=== PATIENT | male | born 1935 | race Caucasian/White ===

== ENCOUNTER → 2018-08-09 | Outpatient (CLI) | payer MEDICARE ==
--- NOTE | 2018-08-09 11:08 | ECHOF ---
Referral Reason:G46.4 Stroke Syndrome MEASUREMENTS -------- HEIGHT: 182.9 cm WEIGHT: 62.6 kg BP: RVIDd: 3.0 cm (< 3.3) IVSd: 1.2 cm (0.6 - 1.1) LVIDd: 4.2 cm (3.9 - 5.3) LVPWd: 1.3 cm (0.6 - 1.1) IVSs: 1.4 cm LVIDs: 3.0 cm LVPWs: 1.3 cm LA Diam: 3.0 cm (2.7 - 3.8) LAESV Index (A-L): 26.89 ml/m Ao Diam: 3.9 cm (2.0 - 3.7) AV Cusp: 1.8 cm (1.5 - 2.6) LA Diam: 4.3 cm (2.7 - 3.8) MV E Meir: 0.55 m/s MV DecT: 379 ms MV A Meir: 0.98 m/s MV E/A Ratio: 0.56 AV maxP.13 mmHg AV meanP.45 mmHg RAP: 5.00 mmHg RVSP: 28.81 mmHg FINDINGS -------- Sinus rhythm. This was a technically adequate study. The left ventricular size is normal. There is mild concentric left ventricular hypertrophy. Overa ll left ventricular systolic function is mildly impaired with, an EF between 45 - 50 %. The right ventricle is normal in size. The left atrium is mildly dilated. Normal LA size by volume 22+/-6 ml/m2. The right atrial size is normal. There is mild aortic valve sclerosis. Peak/mean gradient across the Aortic Valve is 12.13mmHg / 6.4 5mmHg. Mild mitral annular calcification present. Mild mitral regurgitation is present. Mild tricuspid regurgitation present. There is no evidence of pulmonary hypertension. The right v entricular systolic pressure, as measured by Doppler, is 28.81mmHg. There is no pulmonic regurgitation present. The aortic root size is normal. There is no pericardial effusion. CONCLUSIONS -------- 1. The left ventricular size is normal. 2. There is mild concentric left ventricular hypertrophy. 3. Overall left ventricular systolic function is mildly impaired with, an EF between 45 - 50 %. 4. The right ventricle is normal in size. 5. Normal LA size by volume 22+/-6 ml/m2. 6. The right atrial size is normal. 7. There is mild aortic valve sclerosis. 8. Peak/mean gradient across the Aortic Valve is 12.13mmHg / 6.45mmHg. 9. Mild mitral annular calcification present. 10. Mild mitral regurgitation is present. 11. Mild tricuspid regurgitation present. 12. There is no evidence of pulmonary hypertension. 13. The right ventricular systolic pressure, as measured by Doppler, is 28.81mmHg. 14. There is no pulmonic regurgitation present. 15. The aortic root size is normal. 16. There is no pericardial effusion. ROLLER LEVELER OPERATOR: Savanna Marcelo RDCS
== END | disposition home or self-care (01) ==
LOC: RADECHMAIN 08:28
PROVIDERS: ATTEND Family Medicine
DX: I08.3 Combined rheumatic disorders of mitral, aortic and tricuspid valves (principal)
CPT/HCPCS: 93306

== ENCOUNTER → 2018-09-23 | Outpatient (CLI) | payer MEDICARE ==
--- NOTE | 2018-09-23 19:10 | CT ---
EXAMINATION TYPE: CT angio neck DATE OF EXAM: 09/23/2018 HISTORY: Carotid stenosis. COMPARISON: Ultrasound 08/04/2018, CT chest 02/18/2016 CT DLP: 190.7 mGycm. Automated Exposure Control for Dose Reduction was Utilized. TECHNIQUE: CTA scan of the neck is performed with IV Contrast, patient injected with 65 mL of Isovue 370, axial images are obtained, coronal and sagittal reformatted images are reviewed. Three-D recons tructed images are created on an independent workstation and reviewed. FINDINGS: Carotid/Vascular Structures: There is a known left internal carotid artery occlusion the origin. The right common carotid artery bifurcates into internal and external carotid arteries. No stenosis a t the proximal internal carotid arteries evident. There is some plaquing present. Flow-limiting steno sis is not identified. Vertebral arteries are codominant. Other: There is a 2.5 cm spiculated mass at the posterior right apex. This was present 2016 and appea rs stable in size. Portion of the thyroid visualized appears normal. 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 Known occlusion left internal carotid artery. 2. No significant flow-limiting stenosis right carotid bifurcation. Plaquing is present.
== END ==
LOC: RADCTMAIN 12:39
PROVIDERS: ATTEND Family Medicine
DX: I65.22 Occlusion and stenosis of left carotid artery (principal)
CPT/HCPCS: 70498; Q9967

== ENCOUNTER → 2018-11-25 | Outpatient (CLI) | payer MEDICARE ==
--- NOTE | 2018-11-26 12:35 | CT ---
EXAMINATION TYPE: CT chest w con DATE OF EXAM: 11/25/2018 COMPARISON: 02/18/2016 HISTORY: COPD. CT DLP: 185.6 mGycm. Automated Exposure Control for Dose Reduction was Utilized. TECHNIQUE: CT scan of the thorax is performed following with IV Contrast, patient injected with 100m l mL of Isovue 300. FINDINGS: LUNGS: Right apical nodule contiguous with right apical pleural scarring measures approximately 2.4 x 2.5 cm. Previously an area of adjacent groundglass opacity was included in the measurement. Overall this appears stable from the prior of 02/18/2016. Right lateral linear pleural parenchymal scarring wi th more nodular 6 mm solid component is seen on image 7. Minimal left apical pleural parenchymal scar ring is noted as well as dependent subsegmental minimal atelectasis, left greater than right. Backgro und moderate centrilobular emphysematous changes are seen. MEDIASTINUM: There are no greater than 1 cm hilar or mediastinal lymph nodes. Heart is mildly enlarge d. There is upper limits of normal size of the ascending thoracic aorta measuring 3.9 cm. Moderate co ronary calcifications are seen. Trace pericardial fluid is noted. OTHER: Upper abdomen and somewhat limited visualization. Questionable common bile duct distal dilatat ion and pancreatic ductal dilatation on series 3 image 65 through 68. IMPRESSION: 1. Focal pulmonary nodule is similar in size (measuring slightly smaller) than the prior in 2016 ther efore this is favored to represent pleural scarring. Other areas of pleural-parenchymal scarring are seen in addition to dependent atelectasis. Moderate underlying COPD is noted. 2. Questionable distal common bile duct dilatation and pancreatic head ductal dilatation could be fur ther assessed with MRCP.
== END | disposition home or self-care (01) ==
LOC: RADCTMAIN 15:32
PROVIDERS: ATTEND Family Medicine
DX: J44.9 Chronic obstructive pulmonary disease, unspecified (principal); J98.11 Atelectasis; R91.1 Solitary pulmonary nodule; J90 Pleural effusion, not elsewhere classified
CPT/HCPCS: 82565; 84520; 71260; 36415; Q9967

== ENCOUNTER → 2018-12-29 | Outpatient (CLI) | payer MEDICARE ==
--- NOTE | 2018-12-29 13:10 | MR ---
MRCP HISTORY: Bile duct stricture Multiplanar multisequence imaging through the liver and abdomen. Three-dimensional reconstructions performed through the biliary system. Correlation CT chest 11/25/[address] 02/17/2016 Prominence of the central biliary ducts is noted and appears chronic. Extensive motion on the exam li mits evaluation. No intraluminal filling defect is identified. No evident pancreatic head mass, pancr eatic duct appears mildly prominent. Adrenal glands and kidneys are unremarkable. The spleen is unremarkable. Gallbladder shows no gross l uminal filling defect. IMPRESSION: No filling defect or bile duct stricture is evident on this somewhat limited exam. Promin ence of the biliary system likely age-related.
== END | disposition home or self-care (01) ==
LOC: RADMRIMAIN 09:42
PROVIDERS: ATTEND Family Medicine
DX: K83.9 Disease of biliary tract, unspecified (principal)
CPT/HCPCS: 74181

== ENCOUNTER → 2020-03-27 | Outpatient (CLI) | payer MEDICARE ==
[~2020-03-27] MED LIST: REGADENOSON 0.4 MG/5 ML SYRINGE IV ONE
--- NOTE | 2020-03-27 12:59 | NM ---
"EXAMINATION TYPE: NM stress lexiscan cardiolite DATE OF EXAM: 03/27/2020 COMPARISON: NONE HISTORY: Abnormal EKG TECHNIQUE: After the intravenous administration of 9.8 mCi Tc 99m Sestamibi - Cardiolite resting SPE CT images acquired 45 minutes post injection. The patient received 0.4mg Lexiscan, 24.6 mCi Tc 99m Sestamibi - Stress images obtained [address] injection FINDINGS: Review of stress and rest SPECT images demonstrates reduced uptake involving the inferior wall which appears predominantly fixed. Along the inferior septum there is slight asymmetry.. Gated analysis sh ows normal wall motion with an estimated left ventricular ejection fraction of 62 %. Report called to the referring clinician. IMPRESSION: 1. Correlate for stress-induced reversible ischemia involving the inferior septum. Fixed defect invol ving the inferior wall is also noted with a component of a small area of stress-induced reversibility . 2. Ejection fraction of 62%. A Yellow level critical message alert has been initiated for José Luis Rosenthal MD via the [employer] 36 0 | Critical Results System on 03/27/2020 12:56 PM. This message alert has been sent to José Luis Rosenthal MD via the preferences provided by the clinician for the receipt of Radiology Critical Findings. [facility] ID [id number]."
--- NOTE | 2020-03-27 15:51 | EST ---
EXERCISE STRESS AGE: 84 SEX: M HT: 6'1" WT: ? PROTOCOL: Lexiscan Cardiolite STAGE: DURATION OF EXERCISE: HEART RATE REST: 57 BLOOD PRESSURE REST: 135/86 MAXIMUM HEART RATE ACHIEVED: 70 MAXIMUM BLOOD PRESSURE: 144/77 85% MPHR: 117 100% MPHR: 138 METS: INDICATIONS: Abnormal EKG. CLINICAL INFORMATION: Baseline rhythm is sinus mechanism, rate of 57, left axis deviation, poor R-wave progression. Cannot exclude anteroseptal myocardial infarction. Baseline blood pressure 135/86 mmHg. Patient received an injection of Lexiscan. Electrocardiograph monitoring revealed no evidence of diagnostic ischemic ST deviation. Cardiolite was injected per protocol. CONCLUSION: 1. Nondiagnostic electrocardiograph stress testing. 2. Nuclear images will be reported separately. MMODL / IJN: [id number] /
== END | disposition home or self-care (01) ==
LOC: RADNMMAIN 09:16
PROVIDERS: ATTEND Family Medicine
DX: R94.31 Abnormal electrocardiogram [ECG] [EKG] (principal)
CPT/HCPCS: 93017; 78452; A9500; J2785

== ENCOUNTER → 2020-05-08 | Outpatient (CLI) | payer MEDICARE ==
--- NOTE | 2020-05-08 13:56 | NM ---
EXAMINATION TYPE: NM thyroid image only DATE OF EXAM: 05/08/2020 COMPARISON: NONE HISTORY: Hyperthyroidism TECHNIQUE: After the intravenous administration of 9.4 mCi Tc 99m Sodium Pertechnetate. FINDINGS: Vague reduced uptake involving the lower pole the left thyroid. Remaining thyroid tissue demonstrates normal uptake. IMPRESSION: 1. Vague cold defect lower pole left lobe thyroid.
== END | disposition home or self-care (01) ==
LOC: RADNMMAIN 12:08
PROVIDERS: ATTEND Family Medicine
DX: E07.89 Other specified disorders of thyroid (principal)
CPT/HCPCS: 78013; A9512

== ENCOUNTER → 2020-06-05 | Day surgery (SDC) | payer MEDICARE ==
[2020-06-05 13:30] VITALS: RESP 18; TEMP 97.8
[2020-06-05 13:31] VITALS: BP 147/87; PULSE 62
--- NOTE | 2020-06-05 13:38 | US ---
ULTRASOUND GUIDED FNA THYROID BIOPSY: CLINICAL HISTORY: Left thyroid nodule FINDINGS: The procedure was explained to the patient. The risks, complications, benefits and alternatives were discussed and any questions were answered. Informed consent was obtained. Patient was placed supin e on the ultrasound table and prepped and draped in the usual sterile fashion. Utilizing a 25 gauge needle, four passes were made into the requested left thyroid nodule. Patient was stable throughout the procedure. Pathology is pending. All elements of maximal barrier technique were utilized. IMPRESSION: 1. Successful ultrasound guided FNA thyroid biopsy.
== END ==
LOC: RADPROMAIN 12:25
PROVIDERS: ATTEND Family Medicine
DX: E04.1 Nontoxic single thyroid nodule (principal); Z79.82 Long term (current) use of aspirin
CPT/HCPCS: 10005; 88173; 88305